=== PATIENT | male | born 1950 | race African-American/Black ===

== ENCOUNTER 2017-11-15 17:42 | Emergency (ER) | payer MEDICARE ==
[~2017-11-15] VITALS: Ht 172.7 cm; Wt 77.1 kg
[2017-11-15 20:20] VITALS: BP 163/93
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
[2017-11-15 22:10] VITALS: BP 144/87
== END 2017-11-15 20:30 | disposition home or self-care (01) ==
LOC: EDBD 17:42 → EMR 19:20
DX: Z04.8 Encounter for examination and observation for other specified reasons (principal); I10 Essential (primary) hypertension
CPT/HCPCS: 99282